=== PATIENT | male | born 1985 | race Two or more races ===

== ENCOUNTER 2025-01-25 13:34 | Emergency (ER) | payer MEDICAID, SELFPAY ==
[2025-01-25 13:46] VITALS: BP 119/76; PULSE 66; RESP 16; TEMP 36.7; O2SAT 99; BMI 26.5
--- NOTE | 2025-01-25 13:53 | XR_ITS ---
Examination: Testicular sonography complete TECHNIQUE: Grayscale sonographic images testes, assessment arterial inflow venous outflow Doppler spectral analysis carful analysis Date and time: January 25, 2025, 1439 hours INDICATIONS: Testicular pain and severe swelling beginning yesterday FINDINGS: Right testicle not visualized secondary to large hernia with bowel in the right testicular sac and severe right hydrocele Left testis 4.5 cm epididymis 1.1 cm Arterial flow testicle No testicular mass IMPRESSION: No diagnostic visualization right testicle secondary to large hernia with bowel in the testicular sac and severe right hydrocele
--- NOTE | 2025-01-25 13:53 | XR_ITS ---
Examination: CT abdomen and pelvis without contrast. Coronal 3-D reconstructions. Sagittal 2-D reconstructions. Date and time of exam:January 25, 2025, 1510 hours, comparison July 22, 2022 INDICATIONS: Lower abdominal pain beginning today CTDI: vol (mGy): 4.49 DLP: (mGycm): 265 Technique: Axial images of the abdomen have been obtained, 3 mm slice thickness Intravenous contrast material has not been administered. Low dose protocols were performed. One or more of the following dose reduction techniques were used; automated exposure control, adjustment of the mA and/or KV according to patient size, use of iterative reconstruction technique. Findings: No focal liver or splenic lesions No gallstones No pancreatic or adrenal mass No renal or ureteral calculi, no hydronephrosis Multiple fluid distended small bowel loops on this noncontrast study Normal appendix No diverticulitis Very large right inguinal hernia defect containing small bowel and colon Abundant stool in the rectum Contracted urinary bladder IMPRESSION: Very large right inguinal hernia containing small bowel on: Multiple fluid distended small bowel loops on this noncontrast study suspicious for early small bowel obstruction, secondary to the hernia Recommend Gastrografin small bowel series follow-up
--- NOTE | 2025-01-25 13:54 | PD.EDRME ---
Rapid Medical Screening Exam RME Arrival date/time: 01/25/25 13:34 39-year-old male with no known medical history presents to the emergency room with a chief complaint of a right-sided inguinal hernia, testicular extensive swelling x 1 week I have greeted and performed a focused initial assessment of this patient. A comprehensive ED assessment and evaluation of the patient, analysis of all test results, and completion of the medical decision making process will be conducted by additional ED providers. Chief Complaint: General Adult/Misc Complain Vital signs: Vital Signs Temperature 98.0 F 01/25/25 13:46 Pulse Rate 66 01/25/25 13:46 Respiratory Rate 16 01/25/25 13:46 Blood Pressure 119/76 01/25/25 13:46 Pulse Oximetry (%) 99 01/25/25 13:46 Oxygen Delivery Method Room Air 01/25/25 13:46 Vital signs reviewed by provider: Yes
[2025-01-25] MEDS: HYDROcodone/APAP 5/325 TABLET 1 TAB PO (13:58)
[2025-01-25 14:22] LABS: Basophils # (Auto) 0.0 Thou/mm3 (0.0-0.2); Basophils % (Auto) 0 % (0-2.5); Eosinophils # (Auto) 0.1 Thou/mm3 (0.0-0.5); Eosinophils % (Auto) 1 % (0-10); Hematocrit 38.6 % (41.0-53.0); Hemoglobin 13.1 g/dL (13.5-16.0); Immature Granulocytes Auto 0.04 Thou/mm3 (0.00-0.00); Lymphocytes # (Auto) 0.6 Thou/mm3 (1.0-4.8); Lymphocytes % (Auto) 5 % (10-50); Mean Corpuscular HGB Conc 33.9 g/dl (31.0-37.0); Mean Corpuscular Hemoglobin 29.6 pg (25.0-35.0); Mean Corpuscular Volume 87 fL (80-100); Monocytes # (Auto) 0.6 Thou/mm3 (0.0-0.8); Monocytes % (Auto) 4 % (0-12); Neutrophils # (Auto) 11.7 Thou/mm3 (1.8-7.7); Neutrophils % (Auto) 90 % (37-80); Nucleated Red Blood Cell # 0.00 Thou/mm3 (0.00-0.00); Nucleated Red Blood Cell % 0 /100 WBC (0); Platelet Count 214 Thou/mm3 (140-440); RDW Standard Deviation 45.3 fL (35.1-43.9); Red Blood Count 4.42 Miln/mm3 (4.50-5.90); White Blood Count 13.1 Thou/mm3 (3.8-10.6)
[2025-01-25 14:36] LABS: INR 1.0 (0.9-1.3); Partial Thromboplastin Time 27.8 Seconds (22.0-36.0); Prothrombin Time 11.1 Seconds (9.0-12.2)
[2025-01-25 14:48] LABS: B-Type Natriuretic Peptide < 20 pg/mL (0-100)
[2025-01-25 14:51] LABS: Alanine Aminotransferase 16 U/L (10-49); Albumin, Serum 4.2 gm/dL (3.5-5.0); Albumin/Globulin Ratio 1.3 (1.2-2.2); Alkaline Phosphatase 85 U/L (46-116); Anion Gap 10 (7-16); Aspartate Amino Transferase 23 U/L (0-34); BUN/Creatinine Ratio 26 Ratio (12-20); Bilirubin,Total 0.4 mg/dL (0.3-1.2); Blood Urea Nitrogen 23 mg/dL (9-23); Calcium 9.4 mg/dL (8.3-10.6); Calcium (Corrected) 9.4 mg/dL (8.5-10.1); Carbon Dioxide 26.6 mMol/L (20.0-31.0); Chloride 106 mMol/L (98-107); Creatinine (Component) 0.9 mg/dL (0.6-1.3); Estimated Creatinine Clearance 85.2 mL/min (>60); Globulin 3.3 gm/dL (2.3-3.5); Glucose 110 mg/dL (74-106); Lipase 28 U/L (12-53); Osmolality,Calculated 289 (275-295); Potassium 3.5 mMol/L (3.4-5.1); Sodium 143 mMol/L (136-145); Total Protein 7.5 gm/dL (5.7-8.2); Troponin I < 0.002 ng/mL (0.0-0.045); eGFR > 60 See Note
[2025-01-25 15:09] LABS: Collection Type, Urine Clean Catch
[2025-01-25 15:17] LABS: Bilirubin,Urine Negative (Negative); Blood,Urine Negative (Negative); Clarity,Urine Clear (Clear/Hazy); Color,Urine Lt-Yellow (Lt Yel-Yel); Glucose, Urine Negative (Negative); Ketones,Urine Negative (Negative); Leukocyte Esterase,Urine Negative (Negative); Nitrite,Urine Negative (Negative); PH,Urine 6.0 (5.0-7.0); Protein,Urine Negative (Neg - Trace); RBC,Urine 3 /hpf (0-3); Specific Gravity,Urine 1.032 (1.001-1.035); Squamous Epithelial Cell,Urine 1 /hpf (0-5); Urobilinogen,Urine Negative mg/dL (0.0-1.0); WBC,Urine 3 /hpf (0-5)
[2025-01-25 18:30] VITALS: BP 111/70; PULSE 67; RESP 18; TEMP 36.7; O2SAT 97
--- NOTE | 2025-01-25 19:29 | EDNOTE_ITS ---
ED General RME/HPI General Chief complaint: General Adult/Misc Complain Stated complaint: PAIN FROM HERNIA Time Seen by Provider: 01/25/25 13:56 Arrival date/time: 01/25/25 13:34 CC: Right inguinal hernia HPI ongoing for 1 year but worse with swelling in the last week. Patient is also complaining of mild lower abdominal pain. Denies any chest pain shortness of breath or difficulty breathing. RME / HPI RME / HPI narrative: 01/25/25 13:34 39-year-old male with no known medical history presents to the emergency room with a chief complaint of a right-sided inguinal hernia, testicular extensive swelling x 1 week I have greeted and performed a focused initial assessment of this patient. A comprehensive ED assessment and evaluation of the patient, analysis of all test results, and completion of the medical decision making process will be conducted by additional ED providers. Related Data Allergies Allergy/AdvReac Type Severity Reaction Status Date / Time No Known Allergies Allergy Verified 07/22/22 08:26 Review of Systems Review of Systems Narrative Review of Systems: GEN: No fever, no chills, no weight loss EYES: No discharge, no visual changes, no pain HEENT: No ear pain, no congestion, no sore throat PULM: No shortness of breath, no cough, no congestion CV: No chest pain, no dyspnea on exertion, no palpitations GI: No nausea, no vomiting, no diarrhea, + pain, no constipation : No frequency, no urgency, no dysuria MUSC/SKEL: No joint pain, no back pain SKIN: No rash PSYCH: No hallucinations, no depression HEME/LYMPH: No easy bleeding or bruising tendencies NEURO: No weakness, no headache ED Exam Narrative Physical exam: [General: In moderate discomfort not in any acute distress Head normocephalic HEENT: Within acceptable limits Neck is supple nontender Chest equal chest rise nontender to palpation Respiratory: Clear to auscultation no wheezes crackles or rubs CV: Rate rhythm is regular no murmurs rubs or clicks Abdomen is soft nontender no masses positive bowel sounds all 4 quadrants : Penis, uncircumcised no lesions or exudate. Scrotum, is significantly distended enlarged on the right side. No open lesions erythema or edema. Back: No CVA tenderness no spinous process tenderness from cervical spine thoracic and lumbar spine Skin: Intact no petechiae rash induration ulceration or crepitus Extremities: Moving all extremity against resistance cap refill less than 2 seconds neurosensory intact Neuro: Awake alert oriented x3 Glascow coma 15 no focal deficits] Course Course Course Narrative: Post reduction of the hernia I will get another ultrasound to determine if there continues to be intestine in the scrotum. Scrotal ultrasound shows considerable reduction in that hernia but not complete reduction. The patient is currently pain-free but states that this is always popping out, and point. The patient is afebrile nontoxic-appearing at this time the patient be discharged home to follow-up with the surgeon. If there is a worsening of symptoms he can return the emergency room immediately for further evaluation. Quality Measures none Orders Category Date Time Status CT abdomen pelvis wo con Stat Exams 01/25/25 13:53 Completed US scrotum Stat Exams 01/25/25 19:31 Completed US testicular Stat Exams 01/25/25 13:53 Completed BNP [B-Type Natriuretic Peptide] Stat Lab 01/25/25 14:07 Completed CBC Stat Lab 01/25/25 14:07 Completed CMP [Comprehensive Metabolic Panel] Stat Lab 01/25/25 14:07 Completed Lipase Stat Lab 01/25/25 14:07 Completed PT [Prothrombin Time with INR] Stat Lab 01/25/25 14:07 Completed PTT [Partial Thromboplastin Time] Stat Lab 01/25/25 14:07 Completed Troponin I Stat Lab 01/25/25 14:07 Completed UA [Urinalysis] Stat Lab 01/25/25 15:02 Completed Urine Culture Stat Lab 01/25/25 15:02 Received HYDROcodone*/APAP 5/325 [[place] 5/325] Med 01/25/25 13:53 Discontinued 1 tab PO X1 ONE Vital Signs Vital signs: Vital Signs Temperature 98.0 F 01/25/25 13:46 Pulse Rate 66 01/25/25 13:46 Respiratory Rate 16 01/25/25 13:46 Blood Pressure 119/76 01/25/25 13:46 Pulse Oximetry (%) 99 01/25/25 13:46 Oxygen Delivery Method Room Air 01/25/25 13:46 PROCEDURES: Procedure Comment Patient was put into a reverse Trendelenburg position for approximately 30 minutes and then with manual pressure, hernia was reduced with palpable drop back into the body cavity. Patient states he immediately felt complete relief of his pain. Discharge Plan Plan Patient Disposition: HOME (Self Care) Patient condition on transfer: Stable Prescriptions/Referrals Referrals: No Primary/Family,Physician [Primary Care Provider] - In 1 week Obinna Paul MD [Physician, General Surgery] - In 1 week Problem List Clinical Impression: Inguinal hernia Patient/Caregiver Discharge Instructions Education Materials: ED Hernia (Adult) Print Language: [place] Stand Alone Forms: Marisel Award Info., Work/School Release, Patient Portal Info Letter PA/SINDHU Supervising Physician PA/SINDHU Supervising Physician: Thiago Ferguson ENP [facility] Clinical Information Provided by patient Medical Records Reviewed None Labs/Rad/Tests considered, not Ordered Describe details: CBC shows mild leukocytosis of 13.1 H&H of 13.1 and 38.6 respectively no thrombocytopenia Coags within acceptable limits CMP shows no significant electrolyte imbalances other than a glucose which is mildly elevated no transaminitis or T. bili ovation No troponin is unremarkable BNP is unremarkable Urine is negative for any acute finding. Medication Administration(s) Medication Administration History Discontinued Medications Hydrocodone Bitart/Acetaminophen (Hydrocodone/Apap 5/325 Tablet) 1 tab PO X1 ONE Stop: 01/25/25 13:54 Last Admin: 01/25/25 13:58 Dose: 1 tab Documented By: YAYA
--- NOTE | 2025-01-25 19:31 | XR_ITS ---
Examination: Testicular sonography complete Technique: Grayscale sonographic images testes, assessment arterial inflow venous outflow Doppler spectral analysis carful analysis Indications: Large inguinal hernia with bowel present in the scrotal sac post reduction, history testicular swelling and pain since yesterday Comparison: 01/25/2025 1439 hrs. Findings: Right testis 4.5 cm epididymis not visualized Arterial flow testicle. No testicular mass Hernia in the right scrotal sac is less prominent compared to the prior study Left testis 4.7 cm epididymis 11 mm Arterial flow testicle. No testicular mass Moderate varicocele Impression: No testicular torsion Less prominent hernia with bowel in the scrotal sac on the right compared to prior study
== END 2025-01-25 20:58 | disposition home or self-care (01) ==
PROVIDERS: Nurse Practitioner Family; Emergency Provider Emergency Medicine
DX: K40.90 Unilateral inguinal hernia, without obstruction or gangrene, not specified as recurrent (principal)
CPT/HCPCS: 36415; 74176; 76870; 80053; 81001; 83690; 83880; 84484; 85025; 85610; 85730; 87086; 99284; A9270